=== PATIENT | male | born 1960 | race Caucasian/White ===

== ENCOUNTER 2016-08-07 11:57 | Emergency (ER) | payer MEDICAID ==
[~2016-08-07] VITALS: Ht 185.4 cm; Wt 81.6 kg
[~2016-08-07 11:57] MED LIST: AML5T PO; ASPI81CH49 PO; FOLI1TAB51 PO; OMEP20CA5 PO; PAR20T PO; RISP2TAB62 PO; THIA50CA PO
[2016-08-07 12:19] VITALS: BP 134/82
[2016-08-07] MEDS ORDERED: BACITRACIN TOP OINT 1 UD PKG TOP ONE (13:30)
== END 2016-08-07 13:27 | disposition home or self-care (01) ==
LOC: ER 11:57
DX: S60.312A Abrasion of left thumb, initial encounter (principal); I10 Essential (primary) hypertension; I25.2 Old myocardial infarction; F17.210 Nicotine dependence, cigarettes, uncomplicated; Z59.0 Homelessness; Z86.73 Personal history of transient ischemic attack (TIA), and cerebral infarction without residual deficits; W25.XXXA Contact with sharp glass, initial encounter; Y93.89 Activity, other specified; Y99.0 Civilian activity done for income or pay; Y92.69 Other specified industrial and construction area as the place of occurrence of the external cause
CPT/HCPCS: 73140

== ENCOUNTER 2016-12-15 13:40 | Emergency (ER) | payer MEDICAID ==
[~2016-12-15] VITALS: Ht 175.3 cm; Wt 72.6 kg
[~2016-12-15 13:40] MED LIST changes: -OMEP20CA5 PO; +OMEP20CA74 PO
[2016-12-15] MEDS ORDERED: LORazepam 2MG/ML-1ML VIAL IV ONE (14:15)
[2016-12-15] MEDS ORDERED: SODIUM CHLORIDE 0.9% 1,000 ML IV ONE ×2 (14:15→16:30)
[2016-12-15 15:23] LABS: Albumin 3.8 g/dL (3.4-5.0); Calcium 8.3 mg/dL (8.5-10.1); Potassium 3.2 mmol/L (3.5-5.1)
[2016-12-15 15:27] LABS: Basophils # (auto) 0.1 uL; Basophils % (auto) 1.3 % (0.0-2.0); Eosinophils # (auto) 0.2 uL; Hematocrit 41.2 % (41.0-53.0); Lymphocytes # (auto) 2.9 uL; Lymphocytes % (auto) 49.7 % (10.0-50.0); Mean Corpuscular Hemoglobin 33.7 pg (28.0-32.0); Mean Platelet Volume 7.4 fL (6.9-10.8); Monocytes # (auto) 0.4 uL; Monocytes % (auto) 7.5 % (0.0-12.0); Neutrophils # (auto) 2.2 uL; Neutrophils % (auto) 37.5 % (37.0-80.0); Nucleated Red Blood Cells % 0.4 %; Platelet Count (auto) 174 10^3/uL (140-450); White Blood Cell 5.8 10^3/uL (4.4-10.8)
[2016-12-15 15:29] LABS: Bilirubin, Total 0.4 mg/dL (0.2-1.0); Total Protein 7.5 g/dL (6.4-8.2)
[2016-12-15 15:50] LABS: BUN/Creatinine Ratio 14.3
[2016-12-16 03:14] VITALS: BP 131/92
== END 2016-12-16 03:17 | disposition home or self-care (01) ==
LOC: EDBD 13:40 → ER 13:40
DX: S16.1XXA Strain of muscle, fascia and tendon at neck level, initial encounter (principal); S00.83XA Contusion of other part of head, initial encounter; I25.10 Atherosclerotic heart disease of native coronary artery without angina pectoris; I10 Essential (primary) hypertension; I25.2 Old myocardial infarction; F10.129 Alcohol abuse with intoxication, unspecified; F17.210 Nicotine dependence, cigarettes, uncomplicated; Z59.0 Homelessness; Z79.899 Other long term (current) drug therapy; Z79.82 Long term (current) use of aspirin; V13.4XXA Pedal cycle driver injured in collision with car, pick-up truck or van in traffic accident, initial encounter; Y93.89 Activity, other specified; Y92.89 Other specified places as the place of occurrence of the external cause; Y99.8 Other external cause status
CPT/HCPCS: 36415; 70450; 72125; 80053; 80307; 80320; 85025; 94761; 96361; 96374; 99285; J2060; J7030

== ENCOUNTER 2017-07-12 19:39 | Emergency (ER) | payer MEDICAID ==
[~2017-07-12] VITALS: Ht 185.4 cm; Wt 77.1 kg
[2017-07-12 20:29] LABS: Basophils # (auto) 0.1 uL; Basophils % (auto) 1.4 % (0.0-2.0); Eosinophils # (auto) 0.1 uL; Eosinophils % (auto) 2.7 % (0.0-7.0); Hematocrit 42.9 % (41.0-53.0); Hemoglobin 14.7 g/dL (13.5-17.5); Lymphocytes # (auto) 2.2 uL; Lymphocytes % (auto) 44.7 % (10.0-50.0); Mean Corpuscular Hemoglobin 32.7 pg (28.0-32.0); Mean Corpuscular Hgb Conc. 34.3 g/dL (32.0-36.0); Mean Corpuscular Volume 95.2 fL (80.0-100.0); Monocytes # (auto) 0.4 uL; Monocytes % (auto) 7.2 % (0.0-12.0); Neutrophils # (auto) 2.1 uL; Nucleated Red Blood Cells % 0.3 %; Platelet Count (auto) 184 10^3/uL (140-450); Red Blood Cells 4.51 10^6/uL (4.5-5.90); Red Cell Distribution Width 13.8 % (11.8-14.3); White Blood Cell 4.9 10^3/uL (4.4-10.8)
[2017-07-12 20:37] LABS: Urine WBC None Seen /hpf (0 - 3)
[2017-07-12 20:52] LABS: Albumin 3.8 g/dL (3.4-5.0); Calcium 8.3 mg/dL (8.5-10.1); Potassium 3.5 mmol/L (3.5-5.1)
[2017-07-12 20:54] LABS: Bilirubin, Total 0.3 mg/dL (0.2-1.0)
[2017-07-12 20:55] LABS: Urine Bacteria NONE SEEN /hpf (None Seen); Urine Blood Negative /uL (Negative); Urine Specific Gravity 1.004 (1.001-1.035)
[2017-07-12 21:16] LABS: Amphetamine Screen, Urine POSITIVE (NEGATIVE); Barbiturate Scree,Urine NEGATIVE (NEGATIVE); Benzodiazephine Screen, Urine NEGATIVE (NEGATIVE); Cannabinoid Screen, Urine NEGATIVE (NEGATIVE); Cocaine Screen, Urine NEGATIVE (NEGATIVE); Opiate Scree,Urine NEGATIVE (NEGATIVE); Phencyclidine Screen, Urine NEGATIVE (NEGATIVE)
[2017-07-13 05:58] VITALS: BP 104/55
== END 2017-07-13 06:10 | disposition home or self-care (01) ==
LOC: EDBD 19:39 → ER 19:42
DX: F10.129 Alcohol abuse with intoxication, unspecified (principal); F12.10 Cannabis abuse, uncomplicated; F15.10 Other stimulant abuse, uncomplicated; F17.210 Nicotine dependence, cigarettes, uncomplicated; I25.10 Atherosclerotic heart disease of native coronary artery without angina pectoris; I10 Essential (primary) hypertension; I25.2 Old myocardial infarction; Z59.0 Homelessness; Z79.82 Long term (current) use of aspirin; V19.88XA Pedal cyclist (driver) (passenger) injured in other specified transport accidents, initial encounter; Y93.89 Activity, other specified; Y92.488 Other paved roadways as the place of occurrence of the external cause; Y99.8 Other external cause status
CPT/HCPCS: 36415; 80053; 80307; 80320; 81001; 85025

== ENCOUNTER 2023-06-05 08:37 | Emergency (ER) | payer SELFPAY ==
[~2023-06-05] VITALS: Ht 185.4 cm; Wt 85.4 kg
[2023-06-05 08:46] VITALS: TEMP 97.7
[2023-06-05 08:58] VITALS: BP 137/82; PULSE 70; RESP 16; O2SAT 97
[2023-06-05] MEDS: KETOROLAC TROMETH 30 MG/ML 1ML VIAL IM ONE (09:44)
[2023-06-05] MEDS ORDERED: CYCL-837 PO (09:51)
[2023-06-05] MEDS ORDERED: IBUP-1455 PO (09:51)
== END 2023-06-05 09:51 | disposition home or self-care (01) ==
LOC: ER 08:37
DX: S33.5XXA Sprain of ligaments of lumbar spine, initial encounter (principal); I10 Essential (primary) hypertension; I25.2 Old myocardial infarction; I25.10 Atherosclerotic heart disease of native coronary artery without angina pectoris; F32.9 Major depressive disorder, single episode, unspecified; F17.210 Nicotine dependence, cigarettes, uncomplicated; F10.90 Alcohol use, unspecified, uncomplicated; F15.90 Other stimulant use, unspecified, uncomplicated; Z79.899 Other long term (current) drug therapy; X50.0XXA Overexertion from strenuous movement or load, initial encounter; Y93.89 Activity, other specified; Y92.89 Other specified places as the place of occurrence of the external cause; Y99.8 Other external cause status; Y90.0 Blood alcohol level of less than 20 mg/100 ml
CPT/HCPCS: 96372; 99283; J1885

== ENCOUNTER 2024-01-18 18:32 | Inpatient (IN) | payer MEDICAID ==
[~2024-01-18] VITALS: Ht 185.4 cm; Wt 84.2 kg
[~2024-01-18 18:32] MED LIST changes: +CYCL-837 PO; +IBUP-1455 PO
[2024-01-18] MEDS: PIPERACILLIN-TAZOB 3.375GM 100 ML IV ONE (19:00)
[2024-01-18] MEDS ORDERED: VANCOMYCIN PER PHARMACY 0 MG IV SCH (19:00)
[2024-01-18 19:14] LABS: Basophils # (auto) 0.1 10 ^3/uL (0-0.2); Eosinophils # (auto) 0.1 10 ^3/uL (0-0.8); Eosinophils % (auto) 1.1 % (0.0-7.0); Hematocrit 38.3 % (41.0-53.0); Lymphocytes # (auto) 1.2 10 ^3/uL (0.4-5.4); Lymphocytes % (auto) 25.5 % (10.0-50.0); Mean Corpuscular Hemoglobin 30.1 pg (28.0-32.0); Mean Corpuscular Volume 88.4 fL (80.0-100.0); Monocytes # (auto) 0.6 10 ^3/uL (0-1.3); Monocytes % (auto) 12.3 % (0.0-12.0); Neutrophils # (auto) 2.9 10 ^3/uL (1.6-8.6); Neutrophils % (auto) 60.1 % (37.0-80.0); Nucleated Red Blood Cells % 0.1 %; Platelet Count (auto) 223 10^3/uL (140-450); Red Blood Cells 4.33 10^6/uL (4.5-5.90); Red Cell Distribution Width 15.4 % (11.8-14.3); White Blood Cell 4.9 10^3/uL (4.4-10.8)
[2024-01-18 19:34] LABS: Alanine Aminotransferase 61 U/L (7-40); Albumin 4.1 g/dL (3.2-4.8); Alkaline Phosphatase 111 U/L (46-116); Anion Gap 8 (5-15); Aspartate Aminotransferase 88 U/L (13-40); BUN/Creatinine Ratio 18.9 (10.0-20.0); Blood Urea Nitrogen 14 mg/dL (9-23); Calcium 9.4 mg/dL (8.7-10.4); Carbon Dioxide 24 mmol/L (20-31); Chloride 103 mmol/L (98-107); Glucose 144 mg/dL (74-106); Potassium 3.1 mmol/L (3.5-5.1); Sodium 135 mmol/L (136-145)
[2024-01-18 19:35] LABS: Bilirubin, Total 0.3 mg/dL (0.2-1.0); Total Protein 7.5 g/dL (5.7-8.2)
[2024-01-18 19:43] LABS: CRP High Sensitivity 1.03 mg/dL (<1.0); Lactic Acid w/Reflex 2.4 mmol/L (0.4-2.0)
[2024-01-18 19:59] LABS: Erythrocyte Sedimentation Rate 34 mm/hr (0-20)
[2024-01-18] MEDS: VANCOMYCIN 1GM/200ML PREMIX 200 ML IV SCH (20:26)
[2024-01-18 21:07] LABS: Urine Bacteria None Seen /hpf (None Seen)
[2024-01-18] MEDS: THIAMINE 100mg/ml INJ (200mg/2ml VIAL) IV ONE (21:07)
[2024-01-18 21:13] LABS: Magnesium 1.8 mg/dL (1.6-2.6)
[2024-01-18 21:14] LABS: Phosphorus 2.7 mg/dL (2.4-5.1)
[2024-01-18] MEDS ORDERED: traMADol HCL 50 MG TAB PO PRN (21:15)
[2024-01-18 21:22] LABS: INR 0.95 (0.9-1.15); Partial Thromboplastin Time 24.9 SEC (24.5-34.5); Prothrombin Time 10.1 sec (9.3-11.8)
[2024-01-18 21:37] LABS: Amphetamine Screen, Urine Pos (NEGATIVE); Barbiturate Scree,Urine Neg (NEGATIVE); Benzodiazephine Screen, Urine Neg (NEGATIVE); Cannabinoid Screen, Urine Pos (NEGATIVE); Cocaine Screen, Urine Neg (NEGATIVE); Opiate Scree,Urine Neg (NEGATIVE); Phencyclidine Screen, Urine Neg (NEGATIVE)
[2024-01-18 21:43] LABS: Urine Blood Negative /uL (Negative); Urine Clarity Clear (Clear); Urine Color Yellow (Yellow); Urine Mucus FEW (None Seen); Urine Protein, UAD TRACE (Negative); Urine Specific Gravity 1.028 (1.001-1.035); Urine Urobilinogen OVER mg/dL (Negative); Urine WBC 17 /hpf (0 - 3)
[2024-01-18] MEDS: PANTOPRAZOLE 40 MG/10 ML VIAL INJ IV ONE (21:44)
[2024-01-18 22:42] LABS: COVID19 ANTIGEN SOFIA FIA NEGATIVE (NEGATIVE)
[2024-01-18] MEDS: IOHEXOL 300 MG/ML 100ML BOTTLE IJ ONE (22:45)
[2024-01-18] MEDS: POTASSIUM EFFERVESENT TAB 25 MEQ PO ONE (23:33)
[2024-01-19] VITALS (7 sets, daily range): BP systolic 138–179; BP diastolic 74–86; PULSE 58–72; RESP 16–20; TEMP 97.7–98.2; O2SAT 94–98
[2024-01-19] MEDS ORDERED: hydrALAZINE HCL 20 MG/ML VL IV PRN (05:45)
[2024-01-19] MEDS: PANTOPRAZOLE 40 MG TAB PO SCH (06:24)
[2024-01-19] MEDS: ceFAZolin 2 GM/D5W50ml 50 ML IV SCH (06:24)
[2024-01-19] MEDS: SODIUM CHLORIDE 0.9% 1,000 ML IV SCH (06:25)
[2024-01-19 07:57] LABS: Basophils # (auto) 0 10 ^3/uL (0-0.2); Basophils % (auto) 0.9 % (0.0-2.0); Eosinophils # (auto) 0.1 10 ^3/uL (0-0.8); Eosinophils % (auto) 2.4 % (0.0-7.0); Hematocrit 35.7 % (41.0-53.0); Hemoglobin 12.6 g/dL (13.5-17.5); Lymphocytes # (auto) 0.9 10 ^3/uL (0.4-5.4); Mean Corpuscular Hgb Conc. 35.3 g/dL (32.0-36.0); Mean Corpuscular Volume 87.8 fL (80.0-100.0); Monocytes # (auto) 0.6 10 ^3/uL (0-1.3); Monocytes % (auto) 14.1 % (0.0-12.0); Neutrophils # (auto) 2.5 10 ^3/uL (1.6-8.6); Neutrophils % (auto) 60.6 % (37.0-80.0); Nucleated Red Blood Cells % 0.1 %; Platelet Count (auto) 206 10^3/uL (140-450); Red Blood Cells 4.07 10^6/uL (4.5-5.90); Red Cell Distribution Width 15.2 % (11.8-14.3); White Blood Cell 4.2 10^3/uL (4.4-10.8)
[2024-01-19 08:07] LABS: Chloride 103 mmol/L (98-107); Potassium 3.5 mmol/L (3.5-5.1); Sodium 136 mmol/L (136-145)
[2024-01-19 08:08] LABS: Anion Gap 5 (5-15); Calcium 8.8 mg/dL (8.7-10.4); Carbon Dioxide 28 mmol/L (20-31)
[2024-01-19 08:13] LABS: BUN/Creatinine Ratio 17.5 (10.0-20.0); Blood Urea Nitrogen 11 mg/dL (9-23); Glucose 112 mg/dL (74-106)
[2024-01-19] MEDS: IOHEXOL 300 MG/ML 100ML BOTTLE IJ ONE (08:36)
[2024-01-19] MEDS ORDERED: LIDOCAINE 1% HCL (LOCAL ANESTH.) INJ 20ML MDV IJ ONE (09:45)
[2024-01-19] MEDS: LIDOCAINE 1% HCL (LOCAL ANESTH.) INJ 20ML MDV ID ONE (10:00)
[2024-01-19 13:16] LABS: Body Fluid White Blood Cells 2000 CUMM (0-200)
[2024-01-19 13:17] LABS: Body Fluid Polymorphonuclear 81 % (0-25); Body Fluid Red Blood Cells 62000 CUMM (0-2000)
[2024-01-19] MEDS: LOSARTAN POTASSIUM 25 MG TAB PO ONE (17:17)
[2024-01-20] VITALS (7 sets, daily range): BP systolic 144–171; BP diastolic 70–87; PULSE 62–76; RESP 16–20; TEMP 97.7–98.8; O2SAT 90–98
[2024-01-20 05:47] LABS: Basophils # (auto) 0 10 ^3/uL (0-0.2); Basophils % (auto) 0.7 % (0.0-2.0); Eosinophils # (auto) 0.1 10 ^3/uL (0-0.8); Eosinophils % (auto) 2.6 % (0.0-7.0); Hematocrit 38.2 % (41.0-53.0); Hemoglobin 12.9 g/dL (13.5-17.5); Lymphocytes % (auto) 21.1 % (10.0-50.0); Mean Corpuscular Hemoglobin 29.8 pg (28.0-32.0); Mean Corpuscular Hgb Conc. 33.6 g/dL (32.0-36.0); Mean Corpuscular Volume 88.5 fL (80.0-100.0); Monocytes # (auto) 0.5 10 ^3/uL (0-1.3); Monocytes % (auto) 11.2 % (0.0-12.0); Neutrophils # (auto) 3.1 10 ^3/uL (1.6-8.6); Neutrophils % (auto) 64.4 % (37.0-80.0); Nucleated Red Blood Cells % 0.1 %; Platelet Count (auto) 214 10^3/uL (140-450); Red Blood Cells 4.32 10^6/uL (4.5-5.90); Red Cell Distribution Width 15.6 % (11.8-14.3); White Blood Cell 4.8 10^3/uL (4.4-10.8)
[2024-01-20 05:52] LABS: Chloride 105 mmol/L (98-107); Sodium 137 mmol/L (136-145)
[2024-01-20 05:53] LABS: Anion Gap 3 (5-15); Calcium 8.9 mg/dL (8.7-10.4); Carbon Dioxide 29 mmol/L (20-31)
[2024-01-20 05:58] LABS: Glucose 108 mg/dL (74-106)
[2024-01-20 05:59] LABS: BUN/Creatinine Ratio 15.9 (10.0-20.0); Blood Urea Nitrogen 10 mg/dL (9-23)
[2024-01-20] MEDS: LOSARTAN POTASSIUM 25 MG TAB PO SCH (09:31)
[2024-01-20] MEDS: hydrALAZINE HCL 20 MG/ML VL IV PRN (18:14)
[2024-01-20] MEDS: hydrALAZINE HCL 20 MG/ML VL IV ONE (21:09)
[2024-01-20] MEDS: HYDROcodone-ACET 5/325MG TAB PO PRN (21:09)
[2024-01-21] VITALS (8 sets, daily range): BP systolic 144–170; BP diastolic 42–100; PULSE 64–88; RESP 16–18; TEMP 97.2–98; O2SAT 93–98
[2024-01-21 07:20] LABS: Basophils # (auto) 0 10 ^3/uL (0-0.2); Eosinophils # (auto) 0.1 10 ^3/uL (0-0.8); Eosinophils % (auto) 1.5 % (0.0-7.0); Hematocrit 41.2 % (41.0-53.0); Lymphocytes # (auto) 0.9 10 ^3/uL (0.4-5.4); Lymphocytes % (auto) 18.6 % (10.0-50.0); Mean Corpuscular Hemoglobin 30.2 pg (28.0-32.0); Monocytes # (auto) 0.5 10 ^3/uL (0-1.3); Monocytes % (auto) 9.6 % (0.0-12.0); Neutrophils # (auto) 3.3 10 ^3/uL (1.6-8.6); Neutrophils % (auto) 69.3 % (37.0-80.0); Nucleated Red Blood Cells % 0.2 %; Platelet Count (auto) 248 10^3/uL (140-450); Red Blood Cells 4.63 10^6/uL (4.5-5.90); Red Cell Distribution Width 15.4 % (11.8-14.3); White Blood Cell 4.8 10^3/uL (4.4-10.8)
[2024-01-21 07:27] LABS: Calcium 9.6 mg/dL (8.7-10.4); Chloride 102 mmol/L (98-107); Potassium 3.9 mmol/L (3.5-5.1); Sodium 134 mmol/L (136-145)
[2024-01-21 07:28] LABS: Anion Gap 6 (5-15); Carbon Dioxide 26 mmol/L (20-31)
[2024-01-21 07:33] LABS: BUN/Creatinine Ratio 17.1 (10.0-20.0); Blood Urea Nitrogen 12 mg/dL (9-23); Glucose 102 mg/dL (74-106)
[2024-01-21] MEDS ORDERED: AUG875T PO (13:19)
[2024-01-21] MEDS: ACETAMINOPHEN 500 MG TAB PO PRN (17:08)
[2024-01-22 08:35] LABS: Hepatitis B Surface Antigen Negative (Negative)
[2024-01-22 08:47] LABS: Hepatitis B Surface Antigen Negative (Negative)
[2024-01-22 08:59] LABS: Hepatitis C Antibody Reactive (Negative)
[2024-01-22 09:19] LABS: Hepatitis C Antibody Reactive (Negative)
== END 2024-01-21 18:51 | disposition home or self-care (01) | DRG 351 ==
LOC: ER 18:35 → OVERFLOW 21:13 → CENTRAL 23:50
PROVIDERS: ADMIT Internal Medicine Geriatric Medicine; ATTEND Internal Medicine Geriatric Medicine
PROC: 0J9N3ZX Drainage of Right Lower Leg Subcutaneous Tissue and Fascia, Percutaneous Approach, Diagnostic (ICD-10-PCS; principal; 2024-01-19)
DX: M79.81 Nontraumatic hematoma of soft tissue (principal); E87.20 Acidosis, unspecified; K74.60 Unspecified cirrhosis of liver; S80.01XA Contusion of right knee, initial encounter; M70.51 Other bursitis of knee, right knee; L02.415 Cutaneous abscess of right lower limb; L03.115 Cellulitis of right lower limb; K75.9 Inflammatory liver disease, unspecified; I10 Essential (primary) hypertension; E87.6 Hypokalemia; N30.00 Acute cystitis without hematuria; F19.10 Other psychoactive substance abuse, uncomplicated; I25.10 Atherosclerotic heart disease of native coronary artery without angina pectoris; F17.210 Nicotine dependence, cigarettes, uncomplicated; Z59.00 Homelessness unspecified; X58.XXXA Exposure to other specified factors, initial encounter; Y93.9 Activity, unspecified; Y92.89 Other specified places as the place of occurrence of the external cause; Y99.8 Other external cause status; Z79.82 Long term (current) use of aspirin; Z79.899 Other long term (current) drug therapy
CPT/HCPCS: 36415; 71045; 73701; 76705; 80048; 80053; 80307; 80320; 81001; 82306; 82607; 82746; 83036; 83605; 83735; 83880; 84100; 84443; 85025; 85610; 85652; 85730; 86141; 86803; 87040; 87081; 87086; 87205; 87340; 87426; 89051; 93306; 93971; G0378; J2003; J2470; J2543

== ENCOUNTER 2024-06-07 08:21 | Emergency (ER) | payer SELFPAY ==
[~2024-06-07] VITALS: Ht 185.4 cm; Wt 81.8 kg
[~2024-06-07 08:21] MED LIST changes: -AML5T PO; -ASPI81CH49 PO; +AUG875T PO; -CYCL-837 PO; -FOLI1TAB51 PO; -IBUP-1455 PO; -OMEP20CA74 PO; -PAR20T PO; -RISP2TAB62 PO; -THIA50CA PO
[2024-06-07 08:25] VITALS: TEMP 98.8
--- NOTE | 2024-06-07 08:47 | ED.PDOC ---
Back pain HPI HPI Comments 63 year old male presents to the ED with chief complaint of right lower back pain. Patient reports that while at work 2 days ago, he had attempted to lift a heavy bale of plastic, however, he had felt like he pulled something in the right side of his back, causing immediate pain. Patient relays that he had taken some Aspirin and other pain medication which did relieve his pain for some time. Patient denies any numbness, weakness, fall, injury, dizziness, dysuria, or hematuria. Chief Complaint: Flank Pain Time Seen by MD: 08:42 Primary Care Provider: UNKNOWN Reviewed Notes: Nurses Notes, Medications, Allergies Allergies: Coded Allergies: NO KNOWN ALLERGIES (Unverified , 06/16/14) Home Meds Active Scripts Amoxicillin & Pot Clavulanate (AUGMENTIN TABLET) 875 Mg Tb, 875 MG PO BID for 10 Days, #20 TAB Prov:UYEN BRAVO MD 01/21/24 Information Source: Patient Mode of Arrival: Ambulatory Timing: Days Duration: Since onset Location of Back pain: (R) Lower back Severity: Moderate Prehospital treatment: None Quality: Aching Onset: Twisting, Lifing Circumstance: Work Related History of: None Modifying Factors: Nothing Past Medical History PAST MEDICAL HISTORY: CAD, Depression, HTN, [place], Seizures Surgical History (Other): Partial foot amputation Family History Family History: No family hx of Cancer, No family hx of DM, Unobtainable Social History Smoker: Cigarettes, Greater Than 1 Pack/Day Alcohol: Heavy Drugs: Marijuana, Methamphetamine Lives In: Homeless Constitutional: denies: chills, diaphoresis, fatigue, fever, malaise, sweats, weakness, others EENTM: denies: blurred vision, double vision, ear bleeding, ear discharge, ear drainage, ear pain, ear ringing, eye pain, eye redness, hearing loss, mouth pain, mouth swelling, nasal discharge, nose bleeding, nose congestion, nose pain, photophobia, tearing, throat pain, throat swelling, voice changes, others Respiratory: denies: cough, hemoptysis, orthopnea, SOB at rest, shortness of breath, SOB with excertion, stridor, wheezing, others Cardiovascular: denies: chest pain, dizzy spells, diaphoresis, Dyspnea on exertion, edema, irregular heart beat, left arm pain, lightheadedness, palpitations, PND, syncope, others Gastrointestinal: denies: abdomen distended, abdominal pain, blood streaked bowels, constipated, diarrhea, dysphagia, difficulty swallowing, hematemesis, melena, nausea, poor appetite, poor fluid intake, rectal bleeding, rectal pain, vomiting, others Genitourinary: denies: burning, dysuria, flank pain, frequency, hematuria, incontinence, penile discharge, penile sore, pain, testicle pain, testicle swelling, urgency, others Neurological: denies: dizziness, fainting, headache, left sided numbness, left sided weakness, numbness, paresthesia, pre-existing deficit, right sided numbness, right sided weakness, seizure, speech problems, tingling, tremors, weakness, others Musculoskeletal: reports: back pain; denies: gout, joint pain, joint swelling, muscle pain, muscle stiffness, neck pain, others Integumetry: denies: bruises, change in color, change in hair/nails, dryness, laceration, lesions, lumps, rash, wounds, others Allergic/Immunocompromised: denies: Difficulty Healing, Frequent Infections, Hives, Itching, others Hematologic/Lymphatic: denies: anemia, blood clots, easy bleeding, easy bruising, swollen glands, others Endocrine: denies: excessive hunger, excessive sweating, excessive thirst, excessive urination, flushing, intolerance to cold, intolerance to heat, unexplained weight gain, unexplained weight loss, others Psychiatric: denies: anxiety, bipolar disorder, depression, hopeless, panic disorder, schizophrenia, sleepless, suicidal, others All Other Systems: Reviewed and Negative Physical Exam General Appearance: No Apparent Distress, Other (Appears uncomfortable) HEENT: Normal ENT Inspection, PERRL/EOMI Neck: Full Range of Motion, Non-Tender, Normal, Normal Inspection Respiratory: Chest Non-Tender, Lungs Clear, No Accessory Muscle Use, No Respiratory Distress, Normal Breath Sounds Cardiovascular: No Edema, No JVD, No Murmur, No Gallop, Normal Peripheral Pulses, Regular Rate/Rhythm Breast Exam: Deferred Gastrointestinal: No Organomegaly, Non Tender, No Pulsatile Mass, Normal Bowel Sounds, Soft Genitalia: Deferred Pelvic: Deferred Rectal: Deferred Extremities: No calf tenderness, Normal capillary refill, Normal inspection, Normal range of motion, Non-tender, No pedal edema Musculoskeletal : Apperance: Normal Neurologic: Alert, painter 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 Was a procedure done?: No Back Pain Differential Dx Differential Diagnosis: Musculoskeletal Pain, Urinary Tract Infection, Urolithiasis X-Ray, Labs, Meds, VS Vital Signs Date Time Temp Pulse Resp B/P (MAP) Pulse Ox O2 Delivery O2 Flow Rate FiO2 06/07/24 09:26 86 18 99 Room Air 06/07/24 09:25 86 18 137/79 (98) 99 06/07/24 08:25 98.8 96 22 148/84 (105) 96 98.8 06/07/24 08:25 Room Air* 0 21 06/07/24 08:25 98.8 96 22 148/84 (105) 93 Lab Test 06/07/24 08:30 Range/Units Urine Color Yellow Yellow Urine Clarity Clear Clear Urine pH 6.5 5.0-9.0 Urine Specific [place] 1.021 1.001-1.035 Urine Protein Trace H Negative Urine Ketones Negative Negative Urine Blood Negative Negative /uL Urine Nitrite Negative Negative Urine Bilirubin Negative Negative Urine Urobilinogen 2 H Negative mg/dL Urine Leukocyte Esterase 2+ Negative /uL Urine RBC 1 0 - 3 /hpf Urine Microscopic WBC 7 H 0-3 /HPF Urine Squamous Epithelial Cells Few <5 /hpf Urine Bacteria None seen None Seen /hpf Urine Glucose Normal Normal mg/dL Current Medications Medications (Trade) Dose Ordered Sig/Kimo Route Start Time Stop Time Status Last Admin Acetaminophen (Tylenol Tablet) 650 mg ONCE ONCE PO 06/07/24 08:45 06/07/24 08:46 DC 06/07/24 09:34 Ketorolac Tromethamine (Toradol Injection) 15 mg ONCE ONCE IM 06/07/24 08:45 06/07/24 08:46 DC 06/07/24 09:34 Time of 1ST Reevaluation: 09:42 Reevaluation 1ST: Unchanged Patient Education/Counseling: Diagnosis, Treatment Family Education/Counseling: No Family Present Additional Information Previous visit documents reviewed: 01/18/24 for right leg cellulitis The following tests were ordered, and results were reviewed by me: UA, Lumbar Spine XR Additional Information was gathered from interviewing the following independent historians: None I reviewed and agreed with the following test results read by other providers: Lumbar Spine XR I discussed treatment and results with medical personnel. Departure 1 Departure Time of Disposition: 10:14 (Patient likely with lumbar strain. We will discharge patient home with outpatient follow up) Impression: Primary Impression: Lumbar strain Qualified Codes: S39.012A - Strain of muscle, fascia and tendon of lower back, initial encounter Disposition: HOME / SELF CARE / HOMELESS Condition: Stable Additional Instructions: You likely strained your lumbar muscles. You were prescribed muscle relaxers. Please take as directed. For pain you can take the followinam: Ibuprofen 400mg with food Noon: Acetaminophen 1000mg 4pm: Ibuprofen 400mg with food 8pm: Acetaminophen 1000mg You should follow up with your regular doctor within one week to ensure you are doing better. If your symptoms worsen or you have any other concerns then please return to the ER. e-Prescriptions Cyclobenzaprine Hcl (Cyclobenzaprine Hcl) 5 Mg Tab 1 TAB PO TID PRN for 7 Days, #21 TAB Prov: DEWAYNE HOLT MD 06/07/24 Discharged With: Self Critical Care Note Critical Care Time?: No Stability Stability form required: No Heart Score Heart Score: Heart Score Response (Comments) Value History N/A 0 EKG N/A 0 Age N/A 0 Risk Factors N/A 0 Troponin N/A 0 Total 0 I personally scribed for DEWAYNE HOLT MD ([email or web address]) on 06/07/24 at 08:47. Electronically submitted by Dariusz Baumann ([email or web address]). DEWAYNE HOLT MD Jun 07, 2024 08:47
--- NOTE | 2024-06-07 09:04 | DVH ---
INDICATION: lower back pain COMPARISON: None TECHNIQUE: 3 views of the lumbar spine were obtained. FINDINGS: The lumbar vertebral alignment is normal. The intervertebral disc spaces are well-maintained. No significant facet arthropathy is noted. No acute fracture, vertebral compression deformity or aggressive osseous lesions. The paravertebral soft tissues are grossly unremarkable. IMPRESSION: No acute fracture.
[2024-06-07 09:06] LABS: Urine Bacteria None Seen /hpf (None Seen)
[2024-06-07 09:16] LABS: Urine Blood Negative /uL (Negative); Urine Clarity Clear (Clear); Urine Color Yellow (Yellow); Urine Protein, UAD TRACE (Negative); Urine Specific Gravity 1.021 (1.001-1.035); Urine Squamous Epithelial Cell FEW /hpf (<5); Urine Urobilinogen 2 mg/dL (Negative); Urine WBC 7 /HPF (0-3); Urine pH 6.5 (5.0-9.0)
[2024-06-07 09:25] VITALS: BP 137/79
[2024-06-07 09:26] VITALS: PULSE 86; RESP 18; O2SAT 99
[2024-06-07] MEDS: KETOROLAC TROMETH 30 MG/ML 1ML VIAL IM ONE (09:34)
[2024-06-07] MEDS: ACETAMINOPHEN 325 MG TAB PO ONE (09:34)
[2024-06-07] MEDS ORDERED: CYCL-837 PO (10:15)
== END 2024-06-07 10:39 | disposition home or self-care (01) ==
LOC: ER 08:21
DX: S39.012A Strain of muscle, fascia and tendon of lower back, initial encounter (principal); I10 Essential (primary) hypertension; F32.A Depression, unspecified; F17.210 Nicotine dependence, cigarettes, uncomplicated; I25.10 Atherosclerotic heart disease of native coronary artery without angina pectoris; Z98.890 Other specified postprocedural states; X58.XXXA Exposure to other specified factors, initial encounter; Y93.89 Activity, other specified; Y92.89 Other specified places as the place of occurrence of the external cause; Y99.8 Other external cause status
CPT/HCPCS: 72100; 81001; 96372; 99284; J1885

== ENCOUNTER 2024-09-15 13:51 | Emergency (ER) | payer MEDICAID, OTHER ==
[~2024-09-15] VITALS: Ht 185.4 cm; Wt 81.2 kg
[~2024-09-15 13:51] MED LIST changes: +CYCL-837 PO
[2024-09-15 14:08] VITALS: BP 165/98; PULSE 91; RESP 16; TEMP 98.2; O2SAT 94
--- NOTE | 2024-09-15 14:08 | ED.PDOC ---
General HPI Comments 63 y.o male presents to the ED for a chief complaint of right sided groin pain associated with swelling that started 3 days ago. Patient report symptoms have worsened, tender to the touch and presents with urinary retention. Patient denies any recent injury to pain site, fever, chills, penile discharge, or chills. No medical history reported. Time Seen by MD: 14:02 Primary Care Provider: UNKNOWN Reviewed notes: Nurses Notes, Medications, Allergies Allergies: Coded Allergies: NO KNOWN ALLERGIES (Unverified , 06/16/14) Home Meds Active Scripts Cyclobenzaprine Hcl (Cyclobenzaprine Hcl) 5 Mg Tab, 1 TAB PO TID PRN for 7 Days, #21 TAB Prov:DEWAYNE HOLT MD 06/07/24 Amoxicillin & Pot Clavulanate (AUGMENTIN TABLET) 875 Mg Tb, 875 MG PO BID for 10 Days, #20 TAB Prov:UYEN BRAVO MD 01/21/24 Information Source: Patient Mode of Arrival: Ambulatory Severity: Moderate Timing: Days (3) Duration: Since onset Onset: Spontaneous Symptoms: None History of: None Location: None Location male: Other Penile discharge: None Modifying factors: None associated signs and symptoms: Other Past Medical History PAST MEDICAL HISTORY: CAD, Depression, HTN, [place], Seizures Family History Family History: No family hx of Cancer, No family hx of DM, Unobtainable Social History Smoker: Cigarettes, Greater Than 1 Pack/Day Alcohol: Heavy Drugs: Marijuana, Methamphetamine Lives In: Homeless Constitutional: denies: chills, diaphoresis, fatigue, fever, malaise, sweats, weakness, others EENTM: denies: blurred vision, double vision, ear bleeding, ear discharge, ear drainage, ear pain, ear ringing, eye pain, eye redness, hearing loss, mouth pain, mouth swelling, nasal discharge, nose bleeding, nose congestion, nose pain, photophobia, tearing, throat pain, throat swelling, voice changes, others Respiratory: denies: cough, hemoptysis, orthopnea, SOB at rest, shortness of breath, SOB with excertion, stridor, wheezing, others Cardiovascular: denies: chest pain, dizzy spells, diaphoresis, Dyspnea on exertion, edema, irregular heart beat, left arm pain, lightheadedness, palpitations, PND, syncope, others Gastrointestinal: denies: abdomen distended, abdominal pain, blood streaked bowels, constipated, diarrhea, dysphagia, difficulty swallowing, hematemesis, melena, nausea, poor appetite, poor fluid intake, rectal bleeding, rectal pain, vomiting, others Genitourinary: reports: pain; denies: burning, dysuria, flank pain, frequency, hematuria, incontinence, penile discharge, penile sore, testicle pain, testicle swelling, urgency, others Neurological: denies: dizziness, fainting, headache, left sided numbness, left sided weakness, numbness, paresthesia, pre-existing deficit, right sided numbness, right sided weakness, seizure, speech problems, tingling, tremors, weakness, others Musculoskeletal: denies: back pain, gout, joint pain, joint swelling, muscle pain, muscle stiffness, neck pain, others Integumetry: denies: bruises, change in color, change in hair/nails, dryness, laceration, lesions, lumps, rash, wounds, others Allergic/Immunocompromised: denies: Difficulty Healing, Frequent Infections, Hives, Itching, others Hematologic/Lymphatic: denies: anemia, blood clots, easy bleeding, easy bruising, swollen glands, others Endocrine: denies: excessive hunger, excessive sweating, excessive thirst, excessive urination, flushing, intolerance to cold, intolerance to heat, unexplained weight gain, unexplained weight loss, others Psychiatric: denies: anxiety, bipolar disorder, depression, hopeless, panic disorder, schizophrenia, sleepless, suicidal, others All Other Systems: Reviewed and Negative Physical Exam General Appearance: Moderate Distress HEENT: Normal ENT Inspection, Pharynx Normal, TMs Normal Neck: Full Range of Motion, Non-Tender, Normal, Normal Inspection Respiratory: Chest Non-Tender, Lungs Clear, No Accessory Muscle Use, No Respiratory Distress, Normal Breath Sounds Cardiovascular: No Edema, No JVD, No Murmur, No Gallop, Normal Peripheral Pulses, Regular Rate/Rhythm Breast Exam: Deferred Gastrointestinal: No Organomegaly, Non Tender, No Pulsatile Mass, Normal Bowel Sounds, Soft Genitalia: Epididymis (Tenderness), Scrotum (Significant swelling and redness to the right scrotum) Pelvic: Deferred Rectal: Deferred Extremities: No calf tenderness, Normal capillary refill, No pedal edema Musculoskeletal : Apperance: Normal Neurologic: Alert, 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 Was a procedure done?: No Differential Diagnosis Kidney stone (Female): N/A Penile/Scrotal: Prostatitis, Fractured Penis, Phimosis, Hydrocele, Testicular Torsion Urinary Problem (Male): Bladder Outlet, Epididymitis, Prostatitis, Urinary Retention, UTI X-Ray, Labs, Meds, VS Vital Signs Date Time Temp Pulse Resp B/P (MAP) Pulse Ox O2 Delivery O2 Flow Rate FiO2 09/15/24 14:08 98.2 91 16 165/98 (120) 94 98.2 Lab Test 09/15/24 14:17 Range/Units White Blood Count 12.3 H 4.4-10.8 10^3/uL Red Blood Count 4.41 L 4.5-5.90 10^6/uL Hemoglobin 13.5 13.5-17.5 g/dL Hematocrit 39.6 L 41.0-53.0 % Mean Corpuscular Volume 89.9 80.0-100.0 fL Mean Corpuscular Hemoglobin 30.6 28.0-32.0 pg Mean Corpuscular Hemoglobin Concent 34.1 32.0-36.0 g/dL Red Cell Distribution Width 15.2 H 11.8-14.3 % Platelet Count 213 140-450 10^3/uL Mean Platelet Volume 7.7 6.9-10.8 fL Neutrophils (%) (Auto) 84.6 H 37.0-80.0 % Lymphocytes (%) (Auto) 7.7 L 10.0-50.0 % Monocytes (%) (Auto) 7.1 0.0-12.0 % Eosinophils (%) (Auto) 0.1 0.0-7.0 % Basophils (%) (Auto) 0.5 0.0-2.0 % Neutrophils # (Auto) 10.4 H 1.6-8.6 10 ^3/uL Lymphocytes # (Auto) 1.0 0.4-5.4 10 ^3/uL Monocytes # (Auto) 0.9 0-1.3 10 ^3/uL Eosinophils # (Auto) 0 0-0.8 10 ^3/uL Basophils # (Auto) 0.1 0-0.2 10 ^3/uL Nucleated Red Blood Cells 0.0 % Sodium Level 132 L 136-145 mmol/L Potassium Level 3.3 L 3.5-5.1 mmol/L Chloride Level 95 L 98-107 mmol/L Carbon Dioxide Level 27 20-31 mmol/L Anion Gap 10 5-15 Blood Urea Nitrogen 6 L 9-23 mg/dL Creatinine 0.66 L 0.700-1.30 mg/dL Glomerular Filtration Rate Calc 104 >90 mL/min BUN/Creatinine Ratio 9.1 L 10.0-20.0 Serum Glucose 108 H 74-106 mg/dL Calcium Level 9.3 8.7-10.4 mg/dL ULTRASOUND OF SCROTUM AND CONTENTS. IMPRESSION: 1. No evidence of torsion, epididymitis, and/or orchitis. 2. Right testicle measures 4.7 cm. Left testicle measures 4.8 cm. 3. There is a right-sided septated hydrocele. 4. There is a 4 x 4 x 3 mm heterogeneous mass in the right epididymis 5. Left-sided hydrocele and varicocele The patient's CBC shows an elevated white blood cell count of 12.3 The BNP shows hypokalemia at 3.3 The patient is being admitted to the hospitalist Images Reviewed?: Images reviewed and evaluated by me Time of 1ST Reevaluation: 15:00 Reevaluation 1ST: Unchanged Patient Education/Counseling: Diagnosis, Treatment, Prognosis Family Education/Counseling: No Family Present Departure 1 Departure Time of Disposition: 21:27 Impression: Primary Impression: Intractable abdominal pain Additional Impressions: Epididymal mass Hydrocele Qualified Codes: N43.3 - Hydrocele, unspecified Disposition: 09 ADMITTED INPATIENT Admit to: Med Surg Condition: Fair Critical Care Note Critical Care Time?: Yes (35 min-critical care time only) Stability Stability form required: Yes Unstable for transfer: Telemetry monitoring (Telemetry monitoring required), ED Physician Assesment (Clinical assesment) I personally scribed for RODRIGO SCOTT MD ([email or web address]) on 09/15/24 at 14:08. Electronically submitted by Grace Guerrero ([facility]). I personally scribed for RODRIGO SCOTT MD ([email or web address]) on 09/15/24 at 15:21. Electronically submitted by Grace Guerrero ([facility]). RODRIGO SCOTT MD Sep 15, 2024 14:08
[2024-09-15 14:35] LABS: Basophils # (auto) 0.1 10 ^3/uL (0-0.2); Basophils % (auto) 0.5 % (0.0-2.0); Eosinophils # (auto) 0 10 ^3/uL (0-0.8); Eosinophils % (auto) 0.1 % (0.0-7.0); Hematocrit 39.6 % (41.0-53.0); Hemoglobin 13.5 g/dL (13.5-17.5); Lymphocytes % (auto) 7.7 % (10.0-50.0); Mean Corpuscular Hemoglobin 30.6 pg (28.0-32.0); Mean Corpuscular Hgb Conc. 34.1 g/dL (32.0-36.0); Mean Corpuscular Volume 89.9 fL (80.0-100.0); Monocytes # (auto) 0.9 10 ^3/uL (0-1.3); Monocytes % (auto) 7.1 % (0.0-12.0); Neutrophils # (auto) 10.4 10 ^3/uL (1.6-8.6); Neutrophils % (auto) 84.6 % (37.0-80.0); Platelet Count (auto) 213 10^3/uL (140-450); Red Blood Cells 4.41 10^6/uL (4.5-5.90); Red Cell Distribution Width 15.2 % (11.8-14.3); White Blood Cell 12.3 10^3/uL (4.4-10.8)
[2024-09-15 14:44] LABS: Anion Gap 10 (5-15); Carbon Dioxide 27 mmol/L (20-31)
[2024-09-15 14:45] LABS: Calcium 9.3 mg/dL (8.7-10.4)
[2024-09-15 14:49] LABS: BUN/Creatinine Ratio 9.1 (10.0-20.0)
[2024-09-15 14:50] LABS: Blood Urea Nitrogen 6 mg/dL (9-23); Chloride 95 mmol/L (98-107); Glucose 108 mg/dL (74-106); Potassium 3.3 mmol/L (3.5-5.1); Sodium 132 mmol/L (136-145)
--- NOTE | 2024-09-15 15:19 | DVH ---
ULTRASOUND OF SCROTUM AND CONTENTS. INDICATION: right testicular swelling COMPARISON: None TECHNIQUE: Multiple real-time grayscale sonographic and color and duplex Doppler images of the scrotu m and its contents were obtained. FINDINGS: RIGHT TESTICLE: Measures Right epididymis measures 2.2 cm. Septated hydrocele on the right There is a heterogeneous mass in the right epididymis measuring 4 x 4 x 3 mm. Possible appendix testes noted on the right LEFT TESTICLE: Measures 4.8 x 2.1 x 2.3 cm cm. Left-sided hydrocele and varicocele Both testicles demonstrate homogeneous echotexture without evidence of focal lesions. The right epididymal head measures 2.2 mm. There is a 4 x 4 x 3 mm heterogeneous mass in the right ep ididymis. The left epididymal head measures 1.6 mm and is heterogeneous. Subsequent color and duplex Doppler interrogation of the testes demonstrated symmetric normal vascula r flow to both testicles. No focal areas of hyperemia were seen. IMPRESSION: 1. No evidence of torsion, epididymitis, and/or orchitis. 2. Right testicle measures 4.7 cm. Left testicle measures 4.8 cm. 3. There is a right-sided septated hydrocele. 4. There is a 4 x 4 x 3 mm heterogeneous mass in the right epididymis 5. Left-sided hydrocele and varicocele
== END 2024-09-15 23:29 | disposition left against medical advice (07) ==
LOC: ER 13:56
DX: N50.89 Other specified disorders of the male genital organs (principal); R10.30 Lower abdominal pain, unspecified; N43.3 Hydrocele, unspecified; F17.210 Nicotine dependence, cigarettes, uncomplicated; F10.20 Alcohol dependence, uncomplicated; F12.90 Cannabis use, unspecified, uncomplicated; F19.90 Other psychoactive substance use, unspecified, uncomplicated; I10 Essential (primary) hypertension; I25.10 Atherosclerotic heart disease of native coronary artery without angina pectoris; F32.A Depression, unspecified; I25.2 Old myocardial infarction; Z59.00 Homelessness unspecified; Z79.899 Other long term (current) drug therapy; Y90.9 Presence of alcohol in blood, level not specified
CPT/HCPCS: 36415; 76870; 80048; 85025